=== PATIENT | female | born 2000 ===

== ENCOUNTER → 2024-03-11 13:38 | Outpatient (CLI) | payer OTHER | END | disposition home or self-care (01) | LOC: PRENATAL 13:38 | PROVIDERS: ATTEND Obstetrics & Gynecology Maternal & Fetal Medicine | DX: O26.843 Uterine size-date discrepancy, third trimester (principal); O36.8130 Decreased fetal movements, third trimester, not applicable or unspecified; O98.913 Unspecified maternal infectious and parasitic disease complicating pregnancy, third trimester; O36.0930 Maternal care for other rhesus isoimmunization, third trimester, not applicable or unspecified; Z3A.35 35 weeks gestation of pregnancy ==

== ENCOUNTER 2024-04-08 12:06 | Inpatient (IN) | payer OTHER ==
[~2024-04-08] VITALS: Ht 149.9 cm; Wt 95.7 kg
[2024-04-15] MEDS ORDERED: MISOPROSTOL 25 MCG/4 ML GEL.W.APPL ONE (07:44)
[2024-04-15 07:52] LABS: HEMATOCRIT 34.5 % (36.0-45.00); HEMOGLOBIN 11.9 g/dL (12.0-15.00); MEAN CELL VOLUME 92.6 fL (80.00-100.00); MEAN CORPUSCULAR HGB CONC 34.5 g/dl (32.0-36.0); PLATELET COUNT 192 K/uL (150-450); RED BLOOD COUNT 3.73 M/uL (4.00-6.00); RED CELL DISTRIBUTION WIDTH 13.8 % (11.5-14.5)
[2024-04-15 07:58] LABS: URINE APPEARANCE Clear; URINE BILIRRUBIN Negative (NEGATIVE); URINE BLOOD Negative; URINE COLOR Yellow; URINE GLUCOSE Negative (NEGATIVE); URINE KETONE Trace (NEGATIVE); URINE LEUKOCYTE Negative; URINE NITRATE Negative; URINE PROTEIN Trace (NEGATIVE); URINE UROBILINOGEN 0.2 E.U./dl
[2024-04-15 07:59] LABS: URINE BACTERIA 3264.4 uL (0.0-1933); URINE EPITHELIAL CELLS 36.4 uL (0.0-38.8); URINE RBC 7.9 uL (0.0-20.8); URINE WBC 21.1 uL (0.0-23.2)
[2024-04-15] MEDS ORDERED: CHILDREN'S ASPI81 MG PO (07:59)
[2024-04-15] MEDS ORDERED: MISOPROSTOL 25 MCG/4 ML GEL.W.APPL VAG ONE (08:00)
[2024-04-15] MEDS ORDERED: FOLIC ACID0.8 M1 PO (08:00)
[2024-04-15] MEDS ORDERED: PRENATABS RX T1 EACH PO (08:00)
[2024-04-15 08:09] LABS: INR < 0.93; PARTIAL THROMBOPLASTIN TIME 25.9 SECONDS (22.0-34.0)
[2024-04-15] MEDS ORDERED: RINGERS SOLUTION,LACTATED 1,000 ML IV SCH (08:45)
[2024-04-15 09:18] LABS: URINE CRYSTALS FEW /HPF
[2024-04-15] MEDS ORDERED: MORPHINE SULFATE 4 MG/ML VIAL IV ONE (12:15)
[2024-04-15] MEDS ORDERED: OXYTOCIN 500 ML IV SCH (12:15)
[2024-04-15] MEDS ORDERED: ERYTHROMYCIN BASE 1 GM TUBE OP ONE ×2 (15:04→16:30)
[2024-04-15] MEDS ORDERED: OXYTOCIN 20 UNITS/1000ML RL PIGGYBAG IV ONE (15:05)
[2024-04-15] MEDS ORDERED: LIDOCAINE HCL 1% 10ML VIAL ONE (15:05)
[2024-04-15] MEDS ORDERED: IBUprofen 400 MG TABLET PO PRN (16:30)
[2024-04-16 07:13] LABS: HEMATOCRIT 31.8 % (36.0-45.00); MEAN CELL VOLUME 92.5 fL (80.00-100.00); MEAN CORPUSCULAR HEMOGLOBIN 32.1 pg (27.00-32.0); MEAN CORPUSCULAR HGB CONC 34.7 g/dl (32.0-36.0); PLATELET COUNT 168 K/uL (150-450); RED BLOOD COUNT 3.44 M/uL (4.00-6.00); RED CELL DISTRIBUTION WIDTH 14.1 % (11.5-14.5)
[2024-04-16] MEDS ORDERED: PNV,CALCIUM 72/IRON/FOLIC ACID 1 TAB TABLET PO SCH (09:00)
[2024-04-16] MEDS ORDERED: FF) RHO(D) IMMUNE GLOBULIN (POM) IM ONE (21:15)
== END 2024-04-17 14:08 | disposition home or self-care (01) | DRG 807 ==
LOC: LDR 04-15 06:21 → OB/GYN 04-15 13:00
PROVIDERS: ADMIT Obstetrics & Gynecology; ATTEND Obstetrics & Gynecology
PROC: 10E0XZZ Delivery of Products of Conception, External Approach (ICD-10-PCS; principal; 2024-04-15)
PROC: 0HQ9XZZ Repair Perineum Skin, External Approach (ICD-10-PCS; 2024-04-15)
PROC: 4A1HXCZ Monitoring of Products of Conception, Cardiac Rate, External Approach (ICD-10-PCS; 2024-04-15)
PROC: 3E033VJ Introduction of Other Hormone into Peripheral Vein, Percutaneous Approach (ICD-10-PCS; 2024-04-15)
PROC: 3E0P7VZ Introduction of Hormone into Female Reproductive, Via Natural or Artificial Opening (ICD-10-PCS; 2024-04-15)
DX: O70.0 First degree perineal laceration during delivery (principal); Z37.0 Single live birth; Z3A.40 40 weeks gestation of pregnancy; Z20.822 Contact with and (suspected) exposure to COVID-19